=== PATIENT | female | born 1965 | race Caucasian/White ===

== ENCOUNTER 2024-01-18 07:47 | Day surgery (SDC) | payer OTHER ==
[~2024-01-18] VITALS: Ht 152.4 cm; Wt 57.6 kg
[2024-01-18] MEDS ORDERED: LIDOCAINE 2% 100 MG/5 ML UJET TP ONE ×2 (10:40→11:55)
[2024-01-18] MEDS ORDERED: fentaNYL citrate 0.05 MG/ML VIAL ONE (10:40)
[2024-01-18] MEDS ORDERED: KETOROLAC 30 MG/ML VIAL ONE (10:52)
[2024-01-18] MEDS: KETOROLAC 30 MG/ML VIAL IVP ONE (10:54)
== END 2024-01-18 12:00 | disposition home or self-care (01) ==
LOC: MOR 07:47 → MMU 07:47 → MOR 12:00
PROVIDERS: ATTEND Internal Medicine Gastroenterology
DX: C18.7 Malignant neoplasm of sigmoid colon (principal); Z79.899 Other long term (current) drug therapy; Z80.0 Family history of malignant neoplasm of digestive organs
CPT/HCPCS: 44388; 45330; J1885; J3010